=== PATIENT | female | born 1985 | race Caucasian/White ===

== ENCOUNTER 2018-09-21 12:44 | Emergency (ER) | payer SELFPAY ==
--- NOTE | 2018-09-21 14:24 | RAD ---
2 VIEW CHEST: Date: 09/21/18 HISTORY: Cough. FINDINGS: Lungs appear well aerated and clear. No infiltrate identified. Heart and mediastinum unremarkable. Os seous structures unremarkable. IMPRESSION: No acute process. POS: H
== END 2018-09-21 15:37 | disposition home or self-care (01) ==
LOC: ERS 12:44
DX: J06.9 Acute upper respiratory infection, unspecified (principal); F17.210 Nicotine dependence, cigarettes, uncomplicated
CPT/HCPCS: 71046; 94640; J7620